=== PATIENT | female | born 1930 | race Caucasian/White ===

== ENCOUNTER 2018-12-23 02:22 | Observation (INO) | payer MEDICARE, MEDICAID ==
[~2018-12-23] VITALS: Ht 170.2 cm; Wt 77.0 kg
[~2018-12-23 02:22] MED LIST: ASCO-139 PO; ATOR20TA PO; DOCU-28 PO; METO25TA6 PO; MULT-1179 PO; OMEG500C3 PO; TICA90TA PO
--- NOTE | 2018-12-23 02:45 | NUR ---
VERBAL ORDER FOR STROKE WORK UP FROM MD MARROQUIN.
[2018-12-23 03:28] LABS: BASOPHILS % (AUTO) 0.8 % (0-1); EOSINOPHILS # (AUTO) 0.1 X10'3 (0-0.9); EOSINOPHILS % (AUTO) 1.5 % (0-6); HEMATOCRIT 40.9 % (35.0-45.0); HEMOGLOBIN 14.2 g/dl (12.0-16.0); LYMPHOCYTES # (AUTO) 1.3 X10'3 (1.1-4.8); MEAN CORPUSCULAR HEMOGLOBIN 32.3 PG (27.0-31.0); MEAN CORPUSCULAR HGB CONC 34.6 g/dL (33.0-36.5); MEAN CORPUSCULAR VOLUME 93.6 FL (78-98); MEAN PLATELET VOLUME 7.8 FL (7.4-10.4); MONOCYTES # (AUTO) 0.6 X10'3 (0-0.9); MONOCYTES % (AUTO) 14.3 % (2-12); NEUTROPHILS # (AUTO) 2.2 X10'3 (1.8-7.7); NEUTROPHILS % (AUTO) 52.4 % (42-75); PLATELET COUNT 190 X10'3 (140-440); RED BLOOD COUNT 4.38 X10'6 (4.20-5.60); RED CELL DISTRIBUTION WIDTH 14.3 % (11.5-14.5); WHITE BLOOD COUNT 4.1 X10'3 (4.5-11.0)
[2018-12-23 03:40] LABS: PARTIAL THROMBOPLASTIN TIME 30 SECONDS (22-32)
--- NOTE | 2018-12-23 03:47 | NUR ---
PT ABLE TO AMBULATE TO RESTROOM UNDER OWN POWER WITH NO DISTRESS.
[2018-12-23 03:58] LABS: ALANINE AMINOTRANSFERASE 27 U/L (12-78); ALBUMIN 4.3 G/DL (3.4-5.0); ALKALINE PHOSPHATASE 73 IU/L (46-116); ANION GAP 10 (8-16); ASPARTATE AMINO TRANSFERASE 24 U/L (10-37); BILIRUBIN,TOTAL 0.7 MG/DL (0.1-1.0); BLOOD UREA NITROGEN 21 MG/DL (7-18); BUN/CREATININE RATIO 22.1 (6.6-38.0); CALCIUM 9.1 MG/DL (8.5-10.1); CHLORIDE 108 MMOL/L (99-107); CREATININE 0.95 MG/DL (0.40-0.90); GLUCOSE 94 MG/DL (70-104); POTASSIUM 4.1 MMOL/L (3.5-5.1); SODIUM 143 MMOL/L (135-145); TOTAL CARBON DIOXIDE 24.7 MMOL/L (24-32); TOTAL PROTEIN 8.5 G/DL (6.4-8.2); eGFR 56 ML/MIN
[2018-12-23 04:00] LABS: TROPONIN I < 0.04 NG/ML (0.0-0.05)
[2018-12-23 04:02] LABS: CLARITY,URINE CLEAR (Clear); COLOR,URINE YELLOW (Yellow); GLUCOSE, URINE NEGATIVE (Neg); KETONES,URINE NEGATIVE (Neg); LEUKOCYTE ESTERASE ,URINE NEGATIVE (Neg); NITRITES, URINE NEGATIVE (Neg); OCCULT BLOOD,URINE TRACE-INTACT (Neg); PROTEIN,URINE NEGATIVE (Neg); UROBILINOGEN,URINE 0.2 E.U/dL (0.2-1.0)
[2018-12-23 04:08] LABS: UA COLLECTION TYPE VOIDED
[2018-12-23 04:09] LABS: BACTERIA,URINE NONE SEEN /HPF (Neg); RBC,URINE 0-2 /HPF (0-2); SQUAMOUS EPITHELIAL CELL,UR FEW /LPF (FEW); WBC,URINE NONE SEEN /HPF (0-4)
[2018-12-23] MEDS ORDERED: PRAV10TA39 PO (04:14)
--- NOTE | 2018-12-23 04:41 | NUR ---
PER PT NO BP ON R ARM DUE TO MASTECTOMY.
[2018-12-23] MEDS ORDERED: ondansetron/PF 4mg/2ml inj IV PRN (04:50)
[2018-12-23] MEDS ORDERED: magnesium hydroxide 30ml (MOM) UD suspension PO PRN (04:50)
[2018-12-23] MEDS ORDERED: mag hydrox/Alum hydrox/simeth 30ml oral suspension PO PRN (04:50)
[2018-12-23] MEDS ORDERED: acetaminophen 325mg tablet PO PRN ×2 (04:50)
--- NOTE | 2018-12-23 05:01 | NUR ---
VERBAL ORDER FROM MD DESAI TO TRANSPORT PT NON-TELE TO FLOOR.
--- NOTE | 2018-12-23 07:11 | NUR ---
PT AMBULATORY TO THE BATHROOM WITH STEADY GAIT PER REQUEST
--- NOTE | 2018-12-23 07:29 | NUR ---
Patient in room . I have received report from Aggie VELA in ED and had the opportunity to ask questions and assume patient care.
[2018-12-23 07:59] VITALS: BP 156/82
[2018-12-23] MEDS ORDERED: atorvastatin 10mg tablet PO SCH (08:00)
[2018-12-23 10:00] VITALS: BP 172/88
[2018-12-23] MEDS ORDERED: iohexol 350MG/ML 100ml bottle IV ONE (10:30)
[2018-12-23] MEDS ORDERED: aspirin 81mg tablet.DR PO ONE (12:00)
[2018-12-23] MEDS ORDERED: ASPI1CPM9 PO (12:09)
--- NOTE | 2018-12-23 13:45 | NUR ---
Reviewed discharge instructions/meds with pt. Pt verbalized understanding. Pt's sister was present and will be driving pt home. Pt does not have any c/o pain, further amnesia, confusion and states she "feels fine". Pt expressed desire to go home. Pt was walked downstairs, accompanied by her sister.
== END 2018-12-23 14:15 | disposition home or self-care (01) ==
LOC: ER 02:23 → ORTHO 4S 07:36
PROVIDERS: ADMIT Hospitalist; ATTEND Hospitalist
DX: G45.4 Transient global amnesia (principal); I10 Essential (primary) hypertension; I25.10 Atherosclerotic heart disease of native coronary artery without angina pectoris; E78.00 Pure hypercholesterolemia, unspecified; Z79.899 Other long term (current) drug therapy; Z95.5 Presence of coronary angioplasty implant and graft; Z90.12 Acquired absence of left breast and nipple; Z85.3 Personal history of malignant neoplasm of breast
CPT/HCPCS: 36415; 70450; 70496; 70498; 71045; 80053; 81001; 84439; 84443; 84484; 85025; 85610; 85730; 93005; 97161; 97530; 99284; G0378; Q9967

== ENCOUNTER 2021-09-02 11:21 | Emergency (ER) | payer MEDICARE, MEDICAID ==
[~2021-09-02] VITALS: Ht 167.6 cm; Wt 75.0 kg
[~2021-09-02 11:21] MED LIST changes: -ASCO-139 PO; +ASPI-611 PO; -ATOR20TA PO; -DOCU-28 PO; +LACT1CAP26 PO; -METO25TA6 PO; -MULT-1179 PO; -OMEG500C3 PO; +PANT40TA54 PO; -TICA90TA PO
[2021-09-02 12:02] VITALS: BP 148/67
[2021-09-02 12:35] LABS: BASOPHILS % (AUTO) 0.1 % (0-1); EOSINOPHILS % (AUTO) 0.2 % (0-6); HEMATOCRIT 38.5 % (35.0-45.0); HEMOGLOBIN 12.4 g/dl (12.0-16.0); LYMPHOCYTES # (AUTO) 1.2 X10'3 (1.1-4.8); LYMPHOCYTES % (AUTO) 15.2 % (21-51); MEAN CORPUSCULAR HEMOGLOBIN 30.1 PG (27.0-31.0); MEAN CORPUSCULAR HGB CONC 32.3 g/dL (33.0-36.5); MEAN CORPUSCULAR VOLUME 93.1 FL (78-98); MONOCYTES # (AUTO) 1.8 X10'3 (0-0.9); MONOCYTES % (AUTO) 22.8 % (2-12); NEUTROPHILS # (AUTO) 4.9 X10'3 (1.8-7.7); NEUTROPHILS % (AUTO) 61.7 % (42-75); PLATELET COUNT 266 X10'3 (140-440); RED BLOOD COUNT 4.13 X10'6 (4.20-5.60); RED CELL DISTRIBUTION WIDTH 14.5 % (11.5-14.5); WHITE BLOOD COUNT 7.9 X10'3 (4.5-11.0)
[2021-09-02 12:40] LABS: CLARITY,URINE CLEAR (Clear); COLOR,URINE YELLOW (Yellow); GLUCOSE, URINE NEGATIVE (Neg); KETONES,URINE NEGATIVE (Neg); LEUKOCYTE ESTERASE ,URINE NEGATIVE (Neg); NITRITES, URINE NEGATIVE (Neg); OCCULT BLOOD,URINE SMALL (Neg); PH,URINE 5.5 (4.8-8.0); PROTEIN,URINE TRACE mg/dl (Neg); UROBILINOGEN,URINE 0.2 E.U/dL (0.2-1.0)
[2021-09-02 12:42] LABS: UA COLLECTION TYPE CLN CATCH MIDSTREAM
[2021-09-02 12:52] LABS: BACTERIA,URINE NONE SEEN /HPF (Neg); MUCUS STRANDS MODERATE /LPF (Neg); RBC,URINE 0-2 /HPF (0-2); SQUAMOUS EPITHELIAL CELL,UR FEW /LPF (FEW); WBC,URINE NONE SEEN /HPF (0-4)
[2021-09-02 12:52] LABS: ALANINE AMINOTRANSFERASE 7 U/L (12-78); ALBUMIN 3.3 G/DL (3.4-5.0); ALBUMIN/GLOBULIN RATIO 0.6 (1.1-1.5); ALKALINE PHOSPHATASE 58 IU/L (46-116); ANION GAP 10 (8-16); ASPARTATE AMINO TRANSFERASE 19 U/L (10-37); BILIRUBIN,TOTAL 0.6 MG/DL (0.1-1.0); BLOOD UREA NITROGEN 13 MG/DL (7-18); CALCIUM 9.1 MG/DL (8.5-10.1); CHLORIDE 103 MMOL/L (99-107); CREATININE 0.81 MG/DL (0.40-0.90); GLUCOSE 93 MG/DL (70-104); LIPASE 212 U/L (73-393); POTASSIUM 3.9 MMOL/L (3.5-5.1); SODIUM 137 MMOL/L (135-145); TOTAL CARBON DIOXIDE 23.9 MMOL/L (24-32); TOTAL PROTEIN 8.4 G/DL (6.4-8.2); eGFR 67 ML/MIN
[2021-09-02 13:01] LABS: TOTAL CELLS COUNTED 100
[2021-09-02 13:02] LABS: ELLIPTOCYTES 1+; PLATELET ESTIMATE NORMAL
== END 2021-09-02 16:37 | disposition home or self-care (01) ==
LOC: ER 11:22
DX: S30.1XXA Contusion of abdominal wall, initial encounter (principal); Z79.82 Long term (current) use of aspirin; Z79.899 Other long term (current) drug therapy; X58.XXXA Exposure to other specified factors, initial encounter; Y93.89 Activity, other specified; Y92.89 Other specified places as the place of occurrence of the external cause; Y99.8 Other external cause status; I25.10 Atherosclerotic heart disease of native coronary artery without angina pectoris; E78.00 Pure hypercholesterolemia, unspecified; Z87.81 Personal history of (healed) traumatic fracture; Z85.3 Personal history of malignant neoplasm of breast; Z95.5 Presence of coronary angioplasty implant and graft
CPT/HCPCS: 36415; 74176; 80053; 81001; 83690; 85007; 85025; 99284